=== PATIENT | female | born 1990 | race Caucasian/White ===

== ENCOUNTER 2021-10-22 03:20 | Emergency (ER) | payer SELFPAY ==
[2021-10-22 03:27] VITALS: BP 156/74; PULSE 87; RESP 20; TEMP 36.5; O2SAT 96; BMI 22.3
--- NOTE | 2021-10-22 03:40 | DI.RAD.S_ITS ---
PROCEDURE: XR CHEST 2V INDICATIONS: cough/asthma x 3 weeks TECHNIQUE: 2 views of the chest were acquired. COMPARISON: None. FINDINGS: Surgical changes and devices: None. Lungs and pleura: Increased bronchovascular markings in bilateral hilar region are seen with mild bronchial wall thickening. No focal infiltrate. No pleural effusions or pneumothorax. Mediastinum: Mediastinal contours are normal. Heart size is normal. Bones and chest wall: No suspicious bony abnormalities. Soft tissues appear unremarkable. IMPRESSION: Suggestion of mild reactive airway disease such as bronchitis or asthma. No definite focal infiltrate. No pleural effusion or pneumothorax. No discrepancies. Dictated by: Randall Myrick M.D. on 10/22/2021 at 8:01 Approved by: Randall Myrick M.D. on 10/22/2021 at 8:02
[2021-10-22 03:54] LABS: COVID19 -Nasal RAPID Negative (Negative)
--- NOTE | 2021-10-22 04:36 | ED.GENADULT ---
HPI - General Adult General Chief complaint: Shortness of Breath/Dyspnea Stated complaint: throat hurts and hard to breath Time Seen by Provider: 10/22/21 04:24 Source: patient Mode of arrival: Ambulatory History of Present Illness HPI narrative: 30-year-old woman with exercise-induced asthma and no significant additional medical problems presents with significant cough and wheeze, feels like her voice is more hoarse. She has been using Mucinex DM that did not make any difference with her cough. She had the end of an albuterol inhaler left his used the final puffs and found that that was not of much help. She does not report significant fevers she does have a mild headache notes that she has lost quite a bit of weight over the last couple of weeks because food has simply not tasted good and she simply has not been feeling well. She is having exertional dyspnea and audible wheeze. Related Data Previous Rx's Medication Instructions Recorded albuterol sulfate 90 mcg/actuation 2 puff inhalation Q6H PRN 10/22/21 aerosol inhaler (ProAir HFA) shortness of breath or wheezing #8.5 grams prednisone 20 mg tablet 20 mg PO DAILY #7 tabs 10/22/21 Allergies Allergy/AdvReac Type Severity Reaction Status Date / Time nickel Allergy Verified 10/22/21 04:49 Review of Systems Review of Systems Narrative: Remainder of complete review of systems is otherwise unremarkable except for that included in the HPI. Patient History Medical History (Updated 10/22/21 @ 06:40 by Cathy Torres MD) Exercise-induced asthma Social History Smoking Status: Never smoker Smoking Status: Never smoker alcohol intake frequency: 0-2 drinks per day Substance Use Type: does not use Exam Initial Vital Signs Initial Vital Signs: Vital Signs Temperature 97.7 F 10/22/21 03:27 Pulse Rate 87 10/22/21 03:27 Respiratory Rate 20 10/22/21 03:27 Blood Pressure 156/74 H 10/22/21 03:27 Pulse Oximetry 96 10/22/21 03:27 Oxygen Delivery Method 10/22/21 03:27 General: Appears fatigued, audibly wheezing but Able to give a complete and coherent history. Well-nourished well-developed HEENT: Moist mucous membranes, normal sclera with reactive pupils, no pharyngeal erythema Neck: No cervical adenopathy, supple Respiratory: Audible expiratory wheeze, moderate accessory muscle use, able to speak in 4-5 word sentences. No rhonchi and mild scattered inspiratory wheeze Cardiac: Regular rate and rhythm no murmurs no bruits Abdomen: Soft, nontender, good bowel tones, no flank pain Skin: Warm and dry, no rashes Neurologic: Grossly neurologically intact with no obvious asymmetries or abnormalities Extremities: No trauma, well perfused Psych: Cooperative, appropriate insight and affect Course Orders Ordered: ED Orders 10/22/21 03:30 COVID19 -Nasal RAPID/Pre-Proc Stat 10/22/21 03:40 CXR [XR chest 2V] Stat 10/22/21 03:43 RT Consult Eval and Treat NOW Discontinued Medications Albuterol (Albuterol 2.5 Mg/3 Ml Neb (Adult)) 5 mg INH NOW ONE Stop: 10/22/21 04:41 Last Admin: 10/22/21 04:55 Dose: 5 mg Documented By: NOEMI Albuterol/Ipratropium (Albuterol/Ipratropium 3 Ml Ampul) 3 ml INH NOW ONE Stop: 10/22/21 04:40 Last Admin: 10/22/21 04:46 Dose: 3 ml Documented By: NOEMI Albuterol/Ipratropium (Albuterol/Ipratropium 3 Ml Ampul) 3 ml INH NOW ONE Stop: 10/22/21 04:41 Last Admin: 10/22/21 05:53 Dose: Not Given Documented By: NOEMI Sodium Chloride (Normal Saline 0.9%) 1,000 mls @ 1,000 mls/hr IV BOLUS ONE Stop: 10/22/21 05:39 Last Admin: 10/22/21 05:02 Dose: 1,000 mls/hr Documented By: GIBSON Magnesium Sulfate (Magnesium Sulfate) 2 gm in 50 mls @ 150 mls/hr IV NOW ONE Stop: 10/22/21 04:59 Last Admin: 10/22/21 05:02 Dose: 150 mls/hr Documented By: GIBSON Co-signed By: PATRICIA Methylprednisolone (Methylprednisolone 125 Mg/2 Ml Vial) 125 mg IV NOW ONE Stop: 10/22/21 04:41 Last Admin: 08/30/22 05:01 Dose: 125 mg Documented By: GIBSON Vital Signs Vital signs: Vital Signs - 8 hr 10/22/21 03:27 10/22/21 04:47 10/22/21 05:08 Temperature 97.7 F Pulse Rate 87 68 72 Respiratory Rate 20 18 18 Blood Pressure 156/74 H Pulse Oximetry 96 99 97 Oxygen Delivery Method Room Air Room Air Room Air Medical Decision Making Lab Data Labs: Lab Results 10/22/21 Range/Units 03:30 SARS-CoV-2 (PCR) Negative (Negative) Imaging Data Chest x-ray: My Impression: Hyperinflation with no cardiomegaly, no infiltrates, no pneumothorax and no pleural effusions. Mild peribronchial cuffing MDM Narrative Medical decision making narrative: 30-year-old woman with upper respiratory infection the very much appears to be viral with acute asthma exacerbation. He she has responded nicely to albuterol nebulizer, IV Solu-Medrol and IV steroids. Fluids have helped and she is feeling significantly better. On re-evaluation she has minimal wheeze still hoarse voice. This does not appear to be acute bacterial infection, no evidence of congestive heart failure, pneumothorax, pulmonary embolism. She is COVID negative today will discharge her home with of refill of her albuterol inhaler and a prednisone for the next 5 days. Will ask her to return if symptoms worsen. Discharge Plan Departure Patient Disposition: Home Clinical Impression: Viral pneumonia Asthma with exacerbation Qualifiers: Asthma severity: mild Asthma persistence: intermittent Qualified Code(s): J45.21 - Mild intermittent asthma with (acute) exacerbation Instructions: DI for Asthma -- Adult, DI for Viral Upper Respiratory Infection -- Adult Activity Restrictions/Additional Instructions: Thank you for coming in today You appear to have a viral pneumonia that is exacerbating her asthma. Do not have COVID, a collapsed lung, bacterial pneumonia and I do not suspect a pulmonary embolism today. You responded very nicely to inhaled albuterol, IV steroids fluids and IV magnesium. Please use your albuterol inhaler 2 puffs every 4 hours as needed for wheezing or cough. Using your spacer will make that medication much more effective. I have also given you a prescription for prednisone, steroid, 20 mg tablets to use for daily for the next 7 days. If you find that you are getting worse or develop any new symptoms, please feel free to return to the emergency department for further evaluation. Prescriptions: New albuterol sulfate [ProAir HFA] 90 mcg/actuation HFA aerosol inhaler 2 puff inhalation Q6H PRN (Reason: shortness of breath or wheezing) Qty: 8.5 2RF prednisone 20 mg tablet 20 mg PO DAILY Qty: 7 0RF
[2021-10-22] MEDS: ALBUTEROL/IPRATROPIUM 3 ML AMPUL INH (04:46)
[2021-10-22 04:47] VITALS: PULSE 68; RESP 18; O2SAT 99
[2021-10-22] MEDS: ALBUTEROL 2.5 MG/3 ML NEB (ADULT) 5 MG INH (04:55)
[2021-10-22] MEDS: methylPREDNISolone 125 MG/2 ML VIAL IV (05:01)
[2021-10-22] MEDS: SODIUM CHLORIDE 0.9% 1,000 ML 1000 ML IV (05:02)
[2021-10-22] MEDS: MAGNESIUM SULFATE 2 GM/50 ML PIGGYBACK IV (05:02)
--- NOTE | 2021-10-22 05:05 | RT ---
Pt stated that she felt much better in terms of her breathing and did not wish to take an additional Duoneb at this time. No overt signs of respiratory distress noted. Pt on RA with SPO2 WNL.
[2021-10-22 05:08] VITALS: PULSE 72; RESP 18; O2SAT 97
== END 2021-10-22 07:00 | disposition home or self-care (01) ==
PROVIDERS: Emergency Provider Emergency Medicine
DX: J18.9 Pneumonia, unspecified organism (principal); J45.21 Mild intermittent asthma with (acute) exacerbation; Z20.822 Contact with and (suspected) exposure to COVID-19
CPT/HCPCS: 71046; 87635; 94640; 96361; 96374; 99284; C9803; J2930; J3475; J7613

== ENCOUNTER → 2023-10-01 08:53 | Outpatient (CLI) | payer OTHER, SELFPAY ==
[2023-10-01 12:21] LABS: Urine N gonorrhoeae NOT DETECTED
[2023-10-01 12:26] LABS: Urine Chlamydia NOT DETECTED
== END ==
PROVIDERS: Visit Provider Student in an Organized Health Care Education/Training Program
DX: Z11.3 Encounter for screening for infections with a predominantly sexual mode of transmission (principal)
CPT/HCPCS: 87491; 87591

== ENCOUNTER 2023-11-12 13:02 | Day surgery (SDC) | payer OTHER, SELFPAY ==
[2023-11-10 15:48] VITALS: BMI 20.2
--- NOTE | 2023-11-12 | PATH_ITS ---
[facility] Accession Number: [id number] No. of containers..01 Tissue . 01 Material submitted: . product of conception - PRODUCTS OF CONCEPTION . 01 Diagnosis: PRODUCTS OF CONCEPTION: Chorionic villi present. No evidence of neoplasm. MRV 11/17/2023 1608 Local . 01 Electronically signed: . Eliel Stephens MD, PhD, Pathologist NPI- [id number] . 01 Gross description: . Received in formalin with two patient identifiers and products of conception, are multiple ann spongy to membranous soft tissue fragments admixed with hemorrhagic material aggregating to 7.9 x 6.4 x 2.1 cm. No tissue is identified. A business services sales representative section is submitted in A1. ([id number]) /MRV 11/13/2023 1136 Local . 01 Pathologist provided ICD-10: O02.1 . 01 CPT . 354559 Specimen Comment: A courtesy copy of this report has been sent to [facility] Pathology Performed at: [address] [address], [place], [place] [id number] MD Jamil Jensen MD Phone: [phone]
[2023-11-12] MEDS: LACTATED RINGERS 1,000 ML 42 ML IV (13:24)
[2023-11-12] MEDS: ACETAMINOPHEN 325 MG TABLET 975 MG PO (13:24)
[2023-11-12 13:32] VITALS: BP 119/80; PULSE 58; RESP 16; TEMP 37.1; O2SAT 100; BMI 20.2
--- NOTE | 2023-11-12 14:26 | PM.HP.1 ---
History of Present Illness History of Present Illness Date Patient Seen: 11/12/23 Time Patient Seen: 14:26 Chief complaint: Dilation and Curettage Narrative: 32yo with missed diagnosed 11/06/23, measuring 9+3wks, here for suction D&C. She reports no symptoms, and denies any vaginal bleeding. [facility] Medical History Depression (~2013) Chicken pox (~1997) Asthma (~1999) Anxiety and depression Migraine without aura (~2011) Arm fracture Abnormal Pap smear of cervix (~2022) Exercise-induced asthma Surgical History Anesthesia Distal radius fracture H/O lateral meniscus repair of right knee History of repair of ACL Family History (Updated 10/18/23 @ 19:35 by Kyra Rodriguez) Grandmother Lung cancer Dementia Uncle Lung cancer Grandmother Migraine Mother Diverticulosis Hyperlipidemia Hypertension Aunt Breast cancer Aunt Ovarian cancer Father Hyperlipidemia Hypertension History of bilateral knee replacement Sister Autoimmune disorder Grandfather Hypertension Hyperlipidemia Social History marital status: number of children: 0 household members: spouse lives independently: Yes caregiver/support person: No housing: house pets and animals: No education level: college (bachelor's degree) occupational status: employed ([employer]; admin/office job) current occupational exposures/hazards: No special pankaj needs: No travel history: recent (domestic only) seatbelt use: always helmet use: Yes water heater temp set < 120 deg: Yes working smoke detector in home: Yes fire extinguisher in home: Yes carbon monox detector in home: Yes firearms in home: Yes firearms unloaded and locked: Yes do you feel safe at home: Yes Smoking Status: Never smoker second hand exposure: Yes ( smokes MJ) alcohol intake: never substance use type: marijuana (not while /) during the past year weight has: remained stable well-balanced diet: rarely or never daily servings fruits/ve-1 caffeine: Yes (~2 cups coffee/week) Type(s) of exercise: walking and weight lifting Meds Home Medications and Allergies Home Medications Medication Instructions Recorded Confirmed Type albuterol sulfate 90 mcg/actuation 2 puff inhalation Q6H PRN 10/22/21 11/12/23 Rx aerosol inhaler (ProAir HFA) shortness of breath or wheezing #8.5 grams cholecalciferol (vitamin D3) 50 50 mcg PO DAILY 09/24/23 11/12/23 History mcg (2,000 unit) capsule fluticasone propionate 250 1 inh inhalation DAILY 09/24/23 11/06/23 History mcg/actuation blister powder for inhalation Allergies Allergy/AdvReac Type Severity Reaction Status Date / Time nickel Allergy Intermediate Rash Verified 11/12/23 13:19 banana AdvReac Mild Abdominal Verified 11/12/23 13:19 Pain Review of Systems Review of Systems ROS: Yes All systems reviewed with the patient and are negative except as otherwise documented Exam Vital Signs (past 8 hours): - 11/12/23 13:32 Temperature 98.7 F Pulse Rate 58 L Respiratory Rate 16 Blood Pressure 119/80 Pulse Oximetry 100 Oxygen Delivery Method Room Air Oxygen Delivery Method Room Air Const General: healthy appearing, comfortable and No acute distress Resp Effort & Inspection: normal respiratory effort and able to speak in complete sentences Skin General: no rashes or lesions noted Neuro Cognition: normal cognition Speech: speech normal Psych Mood: congruent mood Affect: normal affect Assessment & Plan Assessment and plan (1) Missed : Status: Acute Plan 32yo [id number] with diagnosed MAB at 9wks, here for suction D&C. -surgical consent reviewed and signed today -doxycycline 200mg PO preop -plan for same day surgery Surgery consent We discussed the risks/benefits/alternatives to the proposed procedure, to include but not limited to: -risk of bleeding, requiring medications, blood products, or other procedures as indicated -risk of infection, requiring prolonged hospital stay or other procedures -risk of injury to other structures, including bowel, bladder, blood vessels, nerves, etc. which may also require additional procedures -risk of adverse reaction to anesthesia or medications -risk of venous thromboembolism and associated sequelae -risk of rare complications such as cardiac arrest, or extremely rarely, Patient is aware of the risks, and desires to proceed with planned surgical procedure. Time-Based Coding :: [15min] spent with patient and on the chart (including review of chart, obtaining history, exam, reviewing outside data, placing orders, documenting exam and treatment plan, and counseling patient) on [11/12/23].
[2023-11-12] MEDS: DOXYCYCLINE HYCLATE 100 MG TABLET 200 MG PO (14:37)
--- NOTE | 2023-11-12 15:38 | SUR.OPER ---
Lithotomy on padded OR bed, head on pillow, arms secured on padded arm boards at <90 degrees abduction. Legs secured in padded yellow fins stirrups.
--- NOTE | 2023-11-12 15:47 | P.OP_ITS ---
Operative Date/Time/Diagnoses Date of procedure: 11/12/23 Time of procedure: 15:00 Pre-op diagnosis: Missed at 9+3 weeks Post-op diagnosis: same Procedure & Clinicians Procedure: Suction dilation and curettage Same procedure as scheduled: Yes Indications: 32yo [id number] with missed diagnosed at 9+3wks. She was counseled r egarding expectant, medical, and surgical options, and opted for surgical management of her miscarriage. Surgeon: Tina Sanchez Click Yes if Unassisted: Yes Anesthesia Type: General Operative Notes Findings: Small amount of tissue obtained. Light uterine bleeding noted at the end of the case. Specimen(s): other (products of conception) Estimated Blood Loss (mL): 150 Blood products transfused: none Procedure in detail: The risks, benefits, indications and alternatives of the procedure were reviewed with the patient and informed consent was obtained. The pt was taken to the operating room where general anesthesia was obtained without difficulty. The pt was then placed in the low lithotomy position using gel-padded Jay Stirrups. SCDs were placed bilaterally for VTE prophylaxis. The pt was then prepped and draped in the sterile fashion. A sterile speculum was placed in the patient?s vagina and the cervix was visualized.? A single tooth tenaculum was used to grasp the anterior lip of the cervix. The cervix was then gently, serially dilated to a size 9mm Hegar dilator. A 9mm curved suction catheter was then introduced into the uterine cavity and gently advanced to the uterine fundus. The suction device was then activated and the catheter was rotated to clear the uterus of products of conception. Several passes were performed with a moderate amount of tissue obtained. A gentle, sharp curettage was then performed until a gritty texture was noted. All tissue was sent to pathology for review. The single tooth tenaculum was then removed from the anterior lip of the cervix. The tenaculum sites were noted to be hemostatic. All instruments were then removed from the patient?s vagina. At the completion of the case the sponge and needle counts were correct x 2. The patient tolerated the procedure well and was taken to the PACU in stable condition. Complications: none Post-operative Condition: stable Disposition: PACU Plan for aftercare: Discharge to home once meeting PACU criteria.
[2023-11-12 15:53] VITALS: BP 103/67; PULSE 73; RESP 16; TEMP 36.2; O2SAT 97
[2023-11-12 15:55] VITALS: BP 114/74; PULSE 74; RESP 11; O2SAT 99
[2023-11-12 16:00] VITALS: BP 109/82; PULSE 80; RESP 10; O2SAT 100
[2023-11-12 16:06] VITALS: BP 115/68; PULSE 80; RESP 12; O2SAT 99
[2023-11-12 16:12] VITALS: BP 105/70; PULSE 64; RESP 12; O2SAT 98
[2023-11-12] MEDS: KETOROLAC 30 MG/ML VIAL IM (16:20)
== END 2023-11-12 16:25 | disposition home or self-care (01) ==
PROVIDERS: Referring Provider Student in an Organized Health Care Education/Training Program; Visit Provider Student in an Organized Health Care Education/Training Program
PROC: (CPT 58120; principal; 2023-11-12 14:15)
DX: O02.1 Missed abortion (principal); Z3A.09 9 weeks gestation of pregnancy
CPT/HCPCS: 59820; J1100; J1885; J2405; J2704; J3010

== ENCOUNTER → 2024-05-13 21:10 | Outpatient (ROUT) | payer OTHER, SELFPAY ==
[2024-05-13 21:55] LABS: Add Manual Diff / Slide Review NO; Basophils Absolute Auto 0 /uL (0-100); Basophils Percent Auto 0.4 % (0-2); Eosinophils Absolute Auto 300 /uL (0-450); Eosinophils Percent Auto 3.5 % (2-4); Hematocrit 43.4 % (36-46); Hemoglobin 14.6 g/dL (12.0-16.0); Lymphocytes Absolute Auto 2000 /uL (1100-4500); Lymphocytes Percent Auto 23.9 % (25-40); Mean Corpuscular HGB Conc 33.6 % (30-36); Mean Corpuscular Hemoglobin 30.6 PG (26-34); Monocytes Absolute Auto 400 /uL (0-900); Monocytes Percent Auto 4.9 % (3-14); Neutrophils Absolute Auto 5700 /uL (1500-7000); Neutrophils Percent Auto 67.3 % (50-75); Platelet Count 292 X10^3/uL (150-400); Red Blood Cell Count 4.76 X10^6/uL (4.0-5.2); Red Cell Distribution Width 13.2 % (11.6-14.8); White Blood Cell Count 8.4 X10^3/uL (4.5-11.0)
[2024-05-13 22:28] LABS: Free T4, Direct Thyroxine 0.95 ng/dL (0.78-2.19)
[2024-05-13 22:41] LABS: Thyroid Stimulating Hormone 2.07 uIU/mL (0.47-4.68)
[2024-05-14 17:03] LABS: Hepatitis B Surface Antigen NEGATIVE s/c (NEGATIVE); Rubella Antibody IgG 11.8 IU/mL (>15)
[2024-05-14 17:20] LABS: HIV 1 & 2 Ab/Ag 4th Gen Combo NEGATIVE (NEGATIVE); Hep C Virus Ab w/Reflex Quant NEGATIVE s/c (NEGATIVE)
[2024-05-17 03:08] LABS: RPR Screen Non Reactive (Non Reactive)
== END ==
LOC: LAB 21:11
PROVIDERS: Visit Provider Advanced Practice Midwife
DX: Z34.80 Encounter for supervision of other normal pregnancy, unspecified trimester (principal); Z13.228 Encounter for screening for other metabolic disorders
CPT/HCPCS: 84439; 84443; 85025; 86592; 86762; 86803; 86850; 86900; 86901; 87086; 87340; 87389; 87491; 87563; 87591; 87798

== ENCOUNTER → 2024-08-04 14:37 | Outpatient (CLI) | payer OTHER, SELFPAY ==
--- NOTE | 2024-08-04 14:39 | DI.US.S_ITS ---
PROCEDURE: US OB >= 14 WEEKS FETUS INDICATIONS: 20 weeks anatomy scan OUTSIDE/PRIOR DATING DATA: Last menstrual period (LMP): 03/13/2024. LMP-based estimated date of delivery (JALIL): 12/18/2024. First dating scan (date and location): Not applicable. Estimated date of delivery (JALIL) from first dating scan: Not applicable. The calculations are made using the clinical JALIL of 12/18/2024. TECHNIQUE: Real-time scanning was performed of the fetus, with image documentation and biometric measurements. Endovaginal scanning: No COMPARISON: None. FINDINGS: General: A single living intrauterine gestation is present. Presentation: Variable. Placenta: Placental position is fundal , without previa. Amniotic fluid index: 16.2 cm, normal range is 5-24 cm. Single deepest vertical pocket is 6.3 cm. heart rate: 140 beats per minute. Maternal cervical canal: 3.2 cm long. Normal lower limit is 2.5 cm. biometrics: Biparietal diameter: 5.2 cm, 21 week 6 day Head circumference: 18.3 cm, 20 week 4 day Abdominal circumference: 16.5 cm, 21 week 4 day Femur length: 3.3 cm, 20 week 2 day Clinically estimated gestational age: 20 week 4 day Composite gestational age from present scan: 21 week 1 day Estimated weight and percentile: 390 g, 68 percentile Anatomic survey: Neuro: Ventricles are non-dilated at less than 10 mm. Cisterna magna is normal at 3-11 mm. Cerebellum is normal in size and morphology. Nuchal skin fold: Normal at less than 6 mm between 14-21 weeks gestational age. Face: Nose and lips, facial profile are normal. Spine: No evidence for spina bifida. Heart: 4-chambered heart is present, with normal ventricular outflow tracts. Diaphragm: Diaphragm is intact. Stomach: Left-sided stomach is present. Kidneys: No hydronephrosis. Normal is less than 5 mm in 2nd trimester, less than 7 mm in 3rd trimester. Cord: 3-vessel cord has orthotopic insertion. Bladder: Normal in size. Extremities: All 4 extremities identified. IMPRESSION: Single live intrauterine consistent with a 21 week 1 day gestation by current ultrasound. Normal anatomic survey Approved by: Saud Khalil M.D. on 08/05/2024 at 16:21
== END ==
PROVIDERS: Referring Provider Nurse Practitioner Obstetrics & Gynecology; Visit Provider Nurse Practitioner Obstetrics & Gynecology
DX: Z34.92 Encounter for supervision of normal pregnancy, unspecified, second trimester (principal); Z3A.21 21 weeks gestation of pregnancy
CPT/HCPCS: 76811

== ENCOUNTER 2024-12-23 09:03 | Inpatient (IN) | payer OTHER, SELFPAY ==
--- NOTE | 2024-12-23 | PATH_ITS ---
[facility] Accession Number: [id number] No. of containers..01 Tissue . 01 Material submitted: . placenta - PLACENTA, RETAINED AND MANUALLY REMOVED . 01 Diagnosis: PLACENTA, MANUAL REMOVAL: Mature de guzman placenta, weight 397 grams (10th to 25th percentile for 40 weeks gestational age). Three-vessel umbilical cord without evidence of funisitis. Membranes with meconium-stained macrophages; negative for acute chorioamnionitis. Scattered calcifications present, negative for significant infarction or villitis. MRV 01/09/2025 1816 Local . 01 Electronically signed: . Yvonne Sexton MD, Pathologist NPI- [id number] . 01 Gross description: . Received in formalin labeled with two patient identifiers and placenta, and consists of a 22 x 17.5 x 1.8 cm, 397 gram trimmed weight, ovoid shaped, de guzman placenta. . The membranes are inserted marginally, thin, green tinged and ann. There is a 67 cm in length by 1.5 cm in diameter trivascular, paracentrally inserted white unremarkable umbilical cord that has 1.5 twists per 5 cm of length. The surface is ann, slightly green tinged with vessels that radiate from the umbilical cord insertion across the entirely placental disc. The maternal surface is made up of complete and well-formed cotyledons, sectioning through the placental disc shows a ann-red, spongy unremarkable cut surface. . Supervisor Special Services sections are submitted as follows: A1: Proximal and distal cord. A2: Membrane rolls. A3-A5: Full thickness mid portion placental disc. ([id number]) /MARCEL 12/25/2024 0048 Local . 01 Pathologist provided ICD-10: Z34.90 . 01 CPT . 121319 Specimen Comment: A courtesy copy of this report has been sent to [facility] Pathology Performed at: [address] [facility], [place], [place] [id number] MD Jamil Jensen MD Phone: [phone]
--- NOTE | 2024-12-23 09:12 | PM.OBHP.1 ---
OB HPI Date/Time Date of admission: 12/23/24 Date Patient Seen: 12/23/24 Time Patient Seen: 09:12 History of Present Condition Chief complaint: Labor : 2 Para: 0 Estimated Date of Delivery: 12/18/24 Estimated Gestational Age (weeks): 40.5 Narrative: Sandy Saavedra is a 34 year old female @ 40wks 5days by 8wks US here for evaluation of labor. Contractions started around 7am and rapidly progressed in frequency and intensity. Now breathing through and moaning with strong contractions every 2-3 minutes. +FM. No VB or LOF. Uncomplicated care with CNMs. Planning low intervention , now struggling to cope and requesting an epidural. Partner, Tor, is present and supportive. History of Present care: good care, initiated at week # (8), number of visits (11) and pounds weight gain (33) Dating criteria: based on 1st trimester US only Ultrasounds: normal 1st trimester US and normal mid trimester US Obstetrical complications: none Medical complications: none Preadmission Labs Blood type: B (-) negative -: Antibody screen: negative, GBS status: negative, HBsAG: negative, HIV: negative and RPR/VDLR: negative -: Chlamydia screen: not detected and Gonorrhea screen: not detected -: Rubella: equivocal and Varicella: immune HCT: 37.2 HCAB: negative Cell-free DNA: Negative x3 1 hr GTT: 76 Prior (ies) Hx # Term Pregnancies: 0 Hx # Pregnancies: 0 Number of Living Children: 0 Multiple births: 0 Spontaneous abortions: 1 Ectopic pregnancies: 0 Elective abortions: 0 Evaluation Evaluation Baseline heart rate: 120 Variability: Moderate (6-25) monitor accelerations: Present Monitor Decelerations: Absent Contraction Frequency (minutes): 2 Uterine Contraction Intensity: Strong/Firm Status: Category l (reassuring despite poor continuity of tracing) Dilation (cm): 4 Effacement (%): 100 Dilation: 3-4 cm Effacement: >/=80% station: -1 Position of cervix: posterior Consistency: soft Goodman score: 9 PFSH Medical History Missed (~10/2023) Depression (~2013) Chicken pox (~1997) Asthma (~1999) Anxiety and depression Migraine without aura (~2011) Arm fracture Abnormal Pap smear of cervix (~2022) Exercise-induced asthma Surgical History S/P dilation and curettage (~10/2023) Anesthesia Distal radius fracture H/O lateral meniscus repair of right knee History of repair of ACL Family History Grandmother Lung cancer Dementia Uncle Lung cancer Grandmother Migraine Mother Diverticulosis Hyperlipidemia Hypertension Aunt Breast cancer Aunt Ovarian cancer Father Hyperlipidemia Hypertension History of bilateral knee replacement Sister Autoimmune disorder Grandfather Hypertension Hyperlipidemia Social History marital status: number of children: 0 household members: spouse lives independently: Yes caregiver/support person: No housing: house pets and animals: No education level: college (bachelor's degree) occupational status: employed ([employer]; admin/office job) current occupational exposures/hazards: No special pankaj needs: No travel history: recent (domestic only) seatbelt use: always helmet use: Yes water heater temp set < 120 deg: Yes working smoke detector in home: Yes fire extinguisher in home: Yes carbon monox detector in home: Yes firearms in home: Yes firearms unloaded and locked: Yes do you feel safe at home: Yes second hand exposure: Yes ( smokes MJ) alcohol intake: never substance use type: marijuana (not while /) during the past year weight has: remained stable well-balanced diet: rarely or never daily servings fruits/ve-1 caffeine: Yes (~2 cups coffee/week) Type(s) of exercise: walking and weight lifting Meds Home Medications and Allergies Home Medications ?Medication ?Instructions ?Recorded ?Confirmed ?Type albuterol sulfate 90 mcg/actuation 2 puff inhalation Q6H PRN 10/22/21 05/30/24 Rx aerosol inhaler (ProAir HFA) shortness of breath or wheezing #8.5 grams cholecalciferol (vitamin D3) 50 50 mcg PO DAILY 09/24/23 05/30/24 History mcg (2,000 unit) capsule fluticasone propionate 250 1 inh inhalation DAILY 09/24/23 05/30/24 History mcg/actuation blister powder for inhalation Allergies Allergy/AdvReac Type Severity Reaction Status Date / Time nickel Allergy Intermediate Rash Verified 05/30/24 14:21 banana AdvReac Mild Abdominal Verified 05/30/24 14:21 Pain Review of Systems Review of Systems ROS: Yes All systems reviewed with the patient and are negative except as otherwise documented OB Exam Vital signs Blood Pressure: 113/62 Pulse Rate: 65 Temperature: 95.7 F (Temporal) Resp Effort & Inspection: normal respiratory effort and able to speak in complete sentences Auscultation: clear to auscultation bilaterally Cardio Rate: regular rate Rhythm: regular rhythm Heart Sounds: S1 normal and S2 normal Presentation: vertex Objective Labs 12/23/24 09:38 Assessment and Plan Assessment and Plan Assessment and Plan narrative: A: Term nullipara Active labor Antibiotics NOT indicated Reassuring FHTs P: Admit, routine labor orders. NO2 while awaiting epidural. Reassess once comfortable with epidural. Time-Based Coding :: [TOTAL MINUTES] spent with patient and on the chart (including review of chart, obtaining history, exam, reviewing outside data, placing orders, documenting exam and treatment plan, and counseling patient) on [DATE].
[2024-12-23] MEDS: LACTATED RINGERS 1,000 ML 100 ML IV ×2 (09:15→12:20)
[2024-12-23 09:37] VITALS: BP 113/62; PULSE 65; TEMP 35.4
[2024-12-23 09:50] LABS: Add Manual Diff / Slide Review NO; Hematocrit 38.6 % (36-46); Hemoglobin 13.3 g/dL (12.0-16.0); Lymphocytes Absolute Auto 1100 /uL (1100-4500); Mean Corpuscular HGB Conc 34.3 % (30-36); Mean Corpuscular Hemoglobin 30.9 PG (26-34); Mean Corpuscular Volume 90.0 fL (80-100); Platelet Count 206 X10^3/uL (150-400)
--- NOTE | 2024-12-23 10:18 | PM.AN.REGBLK ---
Regional Block Pre-procedure PMH/ROS narrative: active labor PSH/Anesthesia history narrative: epidural x 1 ASA Class: II Labs: Hct 38.6 % (36-46) 12/23/24 09:38 Plt Count 206 X10^3/uL (150-400) 12/23/24 09:38 Medications: Current Medications Generic Name Dose Route Start Last Admin Trade Name Freq PRN Reason Stop Dose Admin Calcium Carbonate 1,000 mg 12/23/24 09:10 Calcium Carbonate 500 Mg Tab PO Q2HR PRN Dyspepsia Carboprost Tromethamine 250 mcg 12/23/24 09:10 Carboprost 250 Mcg/Ml Ampul IM Q90M PRN Bleeding Fentanyl 100 mcg 12/23/24 09:10 Fentanyl 100 Mcg/2 Ml Inj IV Q1H PRN Pain, Severe (7-10) Oxytocin/Lactated Ringer's 30 unit in 500 mls @ 200 mls/hr 12/23/24 09:10 Oxytocin Premix IV CONT PRN Bleeding Protocol Tranexamic Acid 1,000 mg/ 100 mls @ 600 mls/hr 12/23/24 09:10 Sodium Chloride IV NOW PRN Bleeding Lactated Ringer's 1,000 mls @ 100 mls/hr 12/23/24 09:15 Lactated Ringers IV 12/23/24 19:14 CONT DAVIDSON Lidocaine HCl 20 ml 12/23/24 09:10 Lidocaine 1% 20 Ml INJ INTRA-OP PRN Post Delivery Methylergonovine Maleate 0.2 mg 12/23/24 09:10 Methylergonovine 0.2 Mg Tablet PO Q6HR PRN Heavy Bleeding Methylergonovine Maleate 0.2 mg 12/23/24 09:10 Methylergonovine 0.2 Mg/Ml Vial IM NOW PRN Bleeding Mineral Oil 30 ml 12/23/24 09:10 Mineral Oil 30 Ml Udc TOP PRN PRN Version Misoprostol 800 mcg 12/23/24 09:10 Misoprostol 200 Mcg Tablet OK NOW PRN Bleeding Misoprostol 400 mcg 12/23/24 09:10 Misoprostol 200 Mcg Tablet SL NOW PRN Bleeding Naloxone HCl 0.2 mg 12/23/24 09:10 Naloxone 0.4 Mg/Ml Vial IV Q2MIN PRN Opiate Reversal Ondansetron HCl 4 mg 12/23/24 09:10 Ondansetron 4 Mg/2 Ml Inj IV Q4HR PRN Nausea And Vomiting Oxytocin 10 unit 12/23/24 09:10 Oxytocin 10 Unit/Ml Vial IM NOW PRN Bleeding Allergies: Allergies Allergy/AdvReac Type Severity Reaction Status Date / Time nickel Allergy Intermediate Rash Verified 05/30/24 14:21 banana AdvReac Mild Abdominal Verified 05/30/24 14:21 Pain --: h and p obtained. r/b/a discussed. pt in sitting position. drape and prep with sterile technique. v/s/s. l3 l4 interspace identified. lido 1% 3 skin wheel. introduced tuohy MARIAM at 5 cm. 27 g pencil point needle through tuohy. CSF + heme -, no paresthesias. removed SAB needle. threaded catheter to 12 cm. Procedure Insertion date: 12/23/24 Insertion time: 10:02 Prep/Local: betadine x3 (chloraprep) and 1% lidocaine (3) Interspace: l3 l4 Patient position: sitting Needle: 17 gauge Tuohy (18 g) Loss of resistance with: saline MARIAM at (cm): 5 Catheter placed at SKIN (cm): 12 Sensory level: t10 Insertion: No CSF, No Blood, No Paresthesia with insertion, No Paresthesia with injection and No Test dose reaction Initial Medications TEST DOSE time: 10:03 TEST DOSE: 1.5% lidocaine with epinephrine 1:200k (mL): 3 BOLUS DOSE time: 10:05 BOLUS DOSE (mL): 5 BOLUS DOSE med: other (infusate) Infusion INFUSION: 0.0625% bupivacaine and with fentanyl 2 mcg/mL Initial rate (mL/hr): 10 Subsequent interventions: pump start at 1008 Post-procedure Anesthesia date START: 12/23/24 Anesthesia time START: 09:45 Anesthesia date END: 12/23/24 Anesthesia time END: 13:37 Post-procedure Anesthesia Assessment: Yes CV function: HR/BP stable, Yes Resp function: RR/sat/airway adequate, Yes Post-op hydration adequate, Yes Pain control adequate, Yes Nausea & vomiting absent, Yes Temperature > 36 C, Yes Mental status appropriate and Yes Anesthesia complications
[2024-12-23] MEDS: OXYTOCIN 10 UNIT/ML VIAL IM (13:27)
[2024-12-23] MEDS: OXYTOCIN PREMIX 30 UNIT/500 ML PLAST..BAG 200 UNIT IV (14:35)
--- NOTE | 2024-12-23 15:10 | PM.OBPRVD ---
Events: Meconium Stained Fluid Labor & Delivery Delivery date: 12/23/24 Delivery Time: 13:24 Intrapartal Events: Deceleration Cervical ripening method: none Induction method: none Delivery monitor: external FHT and external uterine Route of delivery: Episiotomy description: None L&D Laceration Description: Labial (bilateral) Delivery repair: chromic Quantitative Blood Loss: 700 Anesthesia Type: Epidural Narrative: Sandy labored quickly with adequate epidural anesthesia. SROM for moderate meconium stained amniotic fluid at 1058. Pushing was initiated when Sandy began to feel persistent rectal pressure at C/C/0. FHR deceleration with pushing so pushing occurred every 3rd contraction. IV was accidently pulled out by Sandy during pushing, with . RT was called to standby for the . NSVB of a vigorous baby boy in VAUGHN position. male delivered through a single loose nuchal cord and the shoulders delivered easily. was placed on maternal abdomen for drying and skin to skin. 10 units of pitocin was given IM for AMTSL. After cessation of pulsation, the cord was double clamped by CNM and cut by FOB. Cord blood sample was collected and sent for typing. Inspection revealed bilateral labial splits with the left split through the labia leaving a window. Boh wer repaired with 4.0 Chromic under aqequate epidural anesthesia. Gentle cord traction and fundal massage resulted in no signs of placental detachment. Another IV was started and Dr. Cee was called for management of retained placenta which he manually removed. QBL was 300mL prior to manual removal and Sandy maintained good pain relief with her epidural. 30 units of pitocin in 500mL LR was started at 250mL/hr once placenta was removed. Ancef 2gm IV was ordered. Fundus firm and bleeding scant. Straight cath was performed for 100mL urine. Total QBL 700mL. Both mother and baby stable and skin to skin as I left the room. Baby 1: Infant gender: Male Presentation: vertex Position: Right Occiput Anterior Placenta delivery description: Manual Removal Cord Vessel Description: 3 Vessels, Nuchal Cord and Loose score (1 min): 7 score (5 min): 9 weight: 3.548 kg Plan for aftercare: Routine care (with a single dose of ancef 2gms IV and CBC in am)
[2024-12-23 18:30] VITALS: BP 120/60
[2024-12-23] MEDS: KETOROLAC 30 MG/ML VIAL IV (18:47)
[2024-12-23] MEDS: ACETAMINOPHEN 325 MG TABLET 650 MG PO (18:48)
[2024-12-23] MEDS: DERMOPLAST SPRAY 20% 60 ML 1 SPRAY TOP (18:49)
[2024-12-24] MEDS: ACETAMINOPHEN 325 MG TABLET 650 MG PO ×3 (01:16→13:03)
[2024-12-24] MEDS: IBUPROFEN 600 MG TABLET PO ×3 (01:16→13:03)
[2024-12-24 06:32] LABS: Add Manual Diff / Slide Review NO; Hematocrit 30.5 % (36-46); Hemoglobin 10.5 g/dL (12.0-16.0); Lymphocytes Absolute Auto 1000 /uL (1100-4500); Mean Corpuscular HGB Conc 34.5 % (30-36); Mean Corpuscular Hemoglobin 30.6 PG (26-34); Mean Corpuscular Volume 88.9 fL (80-100); Platelet Count 171 X10^3/uL (150-400)
--- NOTE | 2024-12-24 11:39 | PM.OBDS.1 ---
Discharge Providers Provider Date of admission: 12/23/24 09:03 Discharge Date: 12/24/24 Primary care physician: Consults: 12/23/24 17:49 Consult to Cash Teller Routine Comment: Discharge provider: Minerva Enamorado CNM Summary Hospital Course Date Patient Seen: 12/24/24 Time Patient Seen: 11:39 Diagnoses: NSVB, retained placenta Hospital Course: Rapid spontaneous labor with adequate epidural anesthesia resulted in NSVB of a healthy baby boy. Retained placenta was manually removed and a single dose of antibiotics were administered for this. PPD1: Stable s/p NSVB. Voiding, ambulating and independently. She has showered this morning and is feeling ready for discharge to [facility] today. Tolerating a general diet. Pain is well controlled with PO medication. Vaginal bleeding is decreasing, no clots. Alo remains by her side and will be available to drive nad help at home. Peripartum Data Infant Delivery Method: Natural Vaginal Laceration Description: Labial (bilateral) Episiotomy description: None complications: none [place] 1: Gender: Male Disposition of : home Discharge Diagnosis (1) Encounter for full-term uncomplicated delivery: Start Date: 12/23/24 Status: Acute Problem Details: routine course (2) Retained placenta: Start Date: 12/23/24 Status: Acute Status at Discharge Cognitive/behavioral status at discharge: oriented, at baseline, confused and calm Functional status at discharge: independent ambulation Overall status at discharge: patient is progressing back to baseline Time Spent with Patient Time attestation: Total time spent providing and/or coordinating discharge services: Time spent: Less than 30 minutes Objective Labs 12/24/24 06:13 Labs: Laboratory Results - last 24 hr 12/23/24 12/24/24 09:38 06:13 WBC 11.4 H RBC 3.43 L Hgb 10.5 L Hct 30.5 L MCV 88.9 MCH 30.6 MCHC 34.5 RDW 12.3 Plt Count 171 Neut % (Auto) 84.3 H Lymph % (Auto) 9.1 L [place] % (Auto) 5.7 Eos % (Auto) 0.6 L Baso % (Auto) 0.3 Neut # (Auto) 9700 H Lymph # (Auto) 1000 L [place] # (Auto) 700 Eos # (Auto) 100 Baso # (Auto) 0 Blood Type B Negative Antibody Screen Positive A Antibody Identification Anti-D Maternal Bleed Cancelled Negative Exam Vital Signs (past 8 hours): BP 109/65, HR 55bpm, RR 16/min, T 98.3F Temporal, SpO2 98% Resp Effort & Inspection: normal respiratory effort and able to speak in complete sentences Cardio Rate: regular rate Rhythm: regular rhythm Other: Fundus firm @ U-2, lochia light, o clots. Mild vulvar edema. Psych Appearance: grossly normal and well kempt Mood: congruent mood Affect: normal affect Discharge Plan Discharge Plan Patient Disposition: Home Discharge orders & Medications Prescriptions: New ibuprofen 600 mg Tablet 600 mg PO Q6H 14 Days Qty: 56 0RF Continued cholecalciferol (vitamin D3) 50 mcg (2,000 unit) capsule 50 mcg PO DAILY fluticasone propionate 250 mcg/actuation blister with device 1 inh inhalation DAILY albuterol sulfate [ProAir HFA] 90 mcg/actuation HFA aerosol inhaler 2 puff inhalation Q6H PRN (Reason: shortness of breath or wheezing) Qty: 8.5 2RF Follow up/Referrals: Minerva Enamorado CNM [Advanced Policyholder Information Clerk, COMPONENT PREP OPERATOR] Referral Note: 2 week follow-up appointment 01/06/25 @ 12:00pm 6 week follow-up appointment 02/03/25 @ 11:15am Diet/Activity/Treatments Diet: Diet as Tolerated and Regular Activity: bed rest x 2 weeks, no heavy lifting x 4 weeks, pelvic rest x 6 weeks Skin/Wound/Dressing Care Report to your healthcare provider any signs of infection, such as:: chills, fever, increased pain, unusual drainage and unusual redness Visit Report/Discharge Packet Instructions: DI for Depression Stand Alone Forms: Patient Portal/API, Stroke Signs & Symptoms
[2024-12-24] MEDS: RHO(D) IMMUNE GLOBULIN 1,500 UNIT SYRINGE 1500 UNIT IM (13:03)
[2024-12-24 13:37] VITALS: BP 120/60; PULSE 65; TEMP 35.4
== END 2024-12-24 14:33 | disposition home or self-care (01) | DRG 807 ==
PROVIDERS: Admitting Provider Nurse Practitioner Obstetrics & Gynecology; Referring Provider Nurse Practitioner Obstetrics & Gynecology; Visit Provider Nurse Practitioner Obstetrics & Gynecology
DX: O76 Abnormality in fetal heart rate and rhythm complicating labor and delivery (principal); Z37.0 Single live birth; O70.0 First degree perineal laceration during delivery; Z3A.40 40 weeks gestation of pregnancy; O73.0 Retained placenta without hemorrhage
CPT/HCPCS: 36415; 59050; 85025; 85461; 86850; 86870; 86900; 86901; G0379; J0687; J1885; J2590; J2790; J7050; J7120